=== PATIENT | female | born 1970 | race Caucasian/White ===

== ENCOUNTER 2016-05-27 09:42 | Emergency (ER) | payer OTHER | END 2016-05-27 10:10 | disposition home or self-care (01) | LOC: ER 09:42 | DX: J32.9 Chronic sinusitis, unspecified (principal); R05 Cough; H92.09 Otalgia, unspecified ear; Z88.6 Allergy status to analgesic agent; Z79.899 Other long term (current) drug therapy | CPT/HCPCS: 99282 ==

== ENCOUNTER 2016-06-11 14:36 | Emergency (ER) | payer OTHER ==
[2016-06-11 15:40] LABS: BASO % 0.6 % (0.1-1.2); EOS # 0.6 10_X3_uL (0.0-0.4); EOS % 10.4 % (0.7-5.8); GRAN # 3.1 10_X3_uL (1.6-6.1); GRAN % 49.7 % (34.0-71.1); HEMATOCRIT 40.6 % (34-45); HEMOGLOBIN 13.6 g/dL (11.2-15.7); LYMPH # 1.8 10_X3_uL (1.2-3.7); LYMPH % 29.7 % (19.3-51.7); MEAN CORPUSCULAR HEMOGLOBIN 30.5 pg (27.0-33.0); MEAN CORPUSCULAR HGB CONC 33.5 g/dL (32.0-36.0); MEAN PLATELET VOLUME 10.1 fl (7.5-11.5); MONO # 0.6 10_X3_uL (0.2-0.9); MONO % 9.6 % (4.7-12.5); PLATELET COUNT 231 x10_3/uL (182-369); RED BLOOD COUNT 4.46 x10_6/uL (3.9-5.2); RED CELL DISTRIBUTION WIDTH 13.1 % (11.7-14.4); WHITE BLOOD COUNT 6.2 x10_3/uL (4.0-10.0)
[2016-06-11 15:59] LABS: ALBUMIN 4.3 gm/dL (3.4-5.0); ALKALINE PHOSPHATASE 63 U/L (50-136); ALT/SGPT 19 U/L (3.5-33.9); AMYLASE 67 U/L (15.62-74.58); AST/SGOT 19 U/L (7.04-26.96); BILIRUBIN,TOTAL 0.24 mg/dL (0.0-1.0); BLOOD UREA NITROGEN 9 mg/dL (7-18); CALCIUM 9.2 mg/dL (8.7-10.7); CARBON DIOXIDE 30 mmol/L (21-32); CREATININE 0.6 mg/dL (0.6-1.3); GLUCOSE,RANDOM 89 mg/dL (70-99); LIPASE 34 U/L (6.75-60.75); POTASSIUM 4.2 mmol/L (3.5-5.1); SODIUM 141 mmol/L (136-145); TOTAL PROTEIN 7.4 gm/dL (6.4-8.2)
== END 2016-06-11 20:00 | disposition home or self-care (01) ==
LOC: ER 14:36
PROVIDERS: Emergency Medicine
DX: R10.9 Unspecified abdominal pain (principal); Z98.84 Bariatric surgery status; Z90.49 Acquired absence of other specified parts of digestive tract; Z90.710 Acquired absence of both cervix and uterus; F17.210 Nicotine dependence, cigarettes, uncomplicated; Z79.899 Other long term (current) drug therapy; Z88.6 Allergy status to analgesic agent
CPT/HCPCS: 36415; 80053; 82150; 83690; 85025; 99283